=== PATIENT | female | born 1990 | race Caucasian/White ===

== ENCOUNTER 2017-05-06 10:33 | Outpatient (CLI) | payer MEDICAID ==
--- NOTE | 2017-05-06 11:20 | Non Stress Test Report ---
Non Stress Test Datetime Report Generated by CPN: 05/06/2017 11:20 DEMOGRAPHIC EGA NST: 34.4 INDICATION Indication for Study: Chronic Hypertension VITAL SIGNS Temperature - NST: 97.7 Pulse - NST: 79 RESP - NST: 16 NBPSYS NST: 119 NBPDIA NST: 74 MONITORING Monitor Explained: Monitor Explained; Test Explained; Patient Verbalized Understanding Time on Monitor: 05/06/2017 10:45 NST INTERVENTIONS NST Interventions: PO Hydration; Reposition Patient Physician Notified NST: Dr Domingo BABY A: [id number] BABY A Movement : Present FHR Baseline : 135 Accelerations : 15X15 Decelerations : None Variability : Moderate 6-25bpm NST Review: Meets Criteria for Reactive NST NST Review and Verified By : Gustavo Chaudhari RNC NST Results: Reactive NST REPORT Report Trigger: Send Report
== END 2017-05-06 11:31 | disposition home or self-care (01) ==
LOC: LC 10:33
PROVIDERS: ATTEND Student in an Organized Health Care Education/Training Program
PROC: 4A1HXCZ Monitoring of Products of Conception, Cardiac Rate, External Approach (ICD-10-PCS; principal; 2017-05-06)
DX: O10.913 Unspecified pre-existing hypertension complicating pregnancy, third trimester (principal); Z3A.34 34 weeks gestation of pregnancy
CPT/HCPCS: 59025

== ENCOUNTER 2017-05-13 10:43 | Outpatient (CLI) | payer MEDICAID ==
--- NOTE | 2017-05-13 13:44 | RADIOLOGY REPORT (SQ) ---
EXAM DESCRIPTION: U/S PROFILE W/O STRESS COMPLETED DATE/TIME: 05/13/2017 1:32 pm REASON FOR STUDY: nr nst COMPARISON: None. TECHNIQUE: Limited garcia-scale realtime and static images of the fetus to measure specified parameter s. LIMITATIONS: None. FINDINGS: HEART RATE: 152 beats per minute. TERRENCE: 11.1 cm. BREATHING MOVEMENT: 2 points. MOVEMENT: 2 points. POSTURE AND TONE: 2 points. QUALITATIVE TERRENCE: 2 points. OTHER: Fetus is in cephalic presentation. IMPRESSION: BIOPHYSICAL PROFILE: 02/04. Trimester of : Third - 28 weeks to delivery COMMENT: BREATHING MOVEMENTS: 2 POINTS: PRESENT 0 POINTS: ABSENT MOTION: 2 POINTS: PRESENT 0 POINTS: ABSENT TONE: 2 POINTS: PRESENT 0 POINTS: ABSENT AMNIOTIC FLUID VOLUME: 2 POINTS: LARGEST POCKET GREATER THAN 2 CM DEPTH. 0 POINTS: NO POCKET OF 2 CM. TECHNICAL DOCUMENTATION: JOB ID: [id number] [employer]- All Rights Reserved
== END 2017-05-13 14:00 | disposition home or self-care (01) ==
LOC: LC 10:43
PROVIDERS: ATTEND Obstetrics & Gynecology Gynecology
PROC: 4A1HXCZ Monitoring of Products of Conception, Cardiac Rate, External Approach (ICD-10-PCS; principal; 2017-05-13)
DX: Z36.89 Encounter for other specified antenatal screening (principal); Z3A.35 35 weeks gestation of pregnancy
CPT/HCPCS: 76819

== ENCOUNTER 2017-05-19 17:07 | Outpatient (CLI) | payer MEDICAID ==
--- NOTE | 2017-05-19 19:33 | Non Stress Test Report ---
Non Stress Test Datetime Report Generated by CPN: 05/19/2017 19:33 DEMOGRAPHIC Test Number: 5 EGA NST: 36.3 INDICATION Indication for Study: Ordered by Provider MONITORING Monitor Explained: Monitor Explained; Test Explained; Patient Verbalized Understanding Time on Monitor: 05/19/2017 17:18 Time off Monitor: 05/19/2017 19:22 NST Duration: 124 NST INTERVENTIONS NST Interventions: PO Hydration Physician Notified NST: Dr Domingo BABY A: [id number] BABY A Movement : Present Contraction Frequency : none FHR Baseline : 130 Accelerations : 15X15 Decelerations : None Variability : Moderate 6-25bpm NST Review: Meets Criteria for Reactive NST NST Review and Verified By : EMILY Dorsey Results: Reactive NST REPORT Report Trigger: Send Report
== END 2017-05-19 19:25 | disposition home or self-care (01) ==
LOC: LC 17:07
PROVIDERS: ATTEND Student in an Organized Health Care Education/Training Program
PROC: 4A1HXCZ Monitoring of Products of Conception, Cardiac Rate, External Approach (ICD-10-PCS; principal; 2017-05-19)
DX: Z34.93 Encounter for supervision of normal pregnancy, unspecified, third trimester (principal)
CPT/HCPCS: 59025

== ENCOUNTER 2017-05-21 15:58 | Outpatient (CLI) | payer MEDICAID | END 2017-05-21 17:20 | disposition home or self-care (01) | LOC: LC 15:58 | PROVIDERS: ATTEND Obstetrics & Gynecology | PROC: 4A1HXCZ Monitoring of Products of Conception, Cardiac Rate, External Approach (ICD-10-PCS; principal; 2017-05-21) | DX: O13.3 Gestational [pregnancy-induced] hypertension without significant proteinuria, third trimester (principal); Z3A.36 36 weeks gestation of pregnancy | CPT/HCPCS: 59025 ==

== ENCOUNTER 2017-05-26 12:43 | Outpatient (CLI) | payer MEDICAID ==
--- NOTE | 2017-05-26 12:53 | Non Stress Test Report ---
Non Stress Test Datetime Report Generated by CPN: 05/26/2017 12:53 DEMOGRAPHIC EGA NST: 36.5 INDICATION Indication for Study: Gestational Hypertension; Ordered by Provider MONITORING Monitor Explained: Monitor Explained; Test Explained; Patient Verbalized Understanding Time on Monitor: 05/21/2017 16:09 Time off Monitor: 05/21/2017 17:14 NST Duration: 65 NST INTERVENTIONS NST Interventions: PO Hydration; Reposition Patient; Vibroacoustic Stim Physician Notified NST: DrMatilde Domenic BABY A: [id number] BABY A Movement : Present Contraction Frequency : None FHR Baseline : 135 Accelerations : 15X15 Decelerations : None Variability : Moderate 6-25bpm NST Review: Meets Criteria for Reactive NST NST Review and Verified By : Brijesh Saenz RN NST Results: Reactive NST REPORT Report Trigger: Send Report
[2017-05-26 13:47] LABS: ABSOLUTE BASOPHILS # (AUTO) 0.1 10^3/uL (0.0-0.2); ABSOLUTE MONOCYTES (AUTO) 0.5 10^3/uL (0.1-1.4); ABSOLUTE NEUT (AUTO) 6.2 10^3/uL (1.7-8.2); BASOPHILS % (AUTO) 0.6 % (0-2); EOSINOPHILS % (AUTO) 0.6 % (0-6); HEMATOCRIT 33.2 % (36.0-47.0); HEMOGLOBIN 11.2 g/dL (12.0-15.5); HGB HCT DIFFERENCE 0.4; LYMPHOCYTES % (AUTO) 23.1 % (13-45); MEAN CORPUSCULAR HEMOGLOBIN 29.3 pg (27.0-33.4); MEAN CORPUSCULAR HGB CONC 33.6 g/dL (32.0-36.0); MEAN CORPUSCULAR VOLUME 87 fl (80-97); MONOCYTES % (AUTO) 5.7 % (3-13); RED BLOOD COUNT 3.81 10^6/uL (3.72-5.28); RED CELL DISTRIBUTION WIDTH 13.6 % (11.5-14.0); WHITE BLOOD COUNT 8.8 10^3/uL (4.0-10.5)
[2017-05-26 14:18] LABS: ALANINE AMINOTRANSFERASE 36 U/L (9-52); ALBUMIN 3.3 g/dL (3.5-5.0); ALKALINE PHOSPHATASE 103 U/L (38-126); ANION GAP 9 (5-19); ASPARTATE AMINO TRANSFERASE 23 U/L (14-36); BILIRUBIN,DIRECT 0.2 mg/dL (0.0-0.4); BILIRUBIN,TOTAL 0.4 mg/dL (0.2-1.3); BLOOD UREA NITROGEN 12 mg/dL (7-20); CALCIUM 9.4 mg/dL (8.4-10.2); CARBON DIOXIDE 24 mmol/L (22-30); CHLORIDE 104 mmol/L (98-107); CREATININE RESULT 0.62 mg/dL (0.52-1.25); GLUCOSE 84 mg/dL (75-110); LDH 330 U/L (313-618); POTASSIUM 4.1 mmol/L (3.6-5.0); SODIUM 137.2 mmol/L (137-145); TOTAL PROTEIN 6.1 g/dL (6.3-8.2); URIC ACID 4.7 mg/dL (2.5-6.2)
[2017-05-26 14:21] LABS: APPEARANCE,URINE CLOUDY; BILIRUBIN,URINE NEGATIVE (NEGATIVE); GLUCOSE, URINE NEGATIVE (NEGATIVE); KETONES,URINE NEGATIVE (NEGATIVE); LEUKOCYTE ESTERASE,URINE TRACE (NEGATIVE); NITRITE,URINE NEGATIVE (NEGATIVE); PROTEIN,URINE NEGATIVE (NEGATIVE); URINE SPECIFIC GRAVITY 1.025
[2017-05-26 14:37] LABS: URINE BARBITURATES SCREEN NEGATIVE; URINE METHADONE SCREEN NEGATIVE; URINE OPIATES LOW NEGATIVE; URINE PHENCYCLIDINE SCREEN NEGATIVE
[2017-05-26 14:41] LABS: URINE CREATININE 131.6 mg/dL (16-327); URINE PROTEIN 8.7 mg/dL (<12)
[2017-05-28 11:26] LABS: URINE PROTEIN 6.6 mg/dL (<12)
== END 2017-05-26 14:49 | disposition home or self-care (01) ==
LOC: LC 12:43
PROVIDERS: ATTEND Student in an Organized Health Care Education/Training Program
PROC: 4A1HXCZ Monitoring of Products of Conception, Cardiac Rate, External Approach (ICD-10-PCS; principal; 2017-05-26)
DX: O13.3 Gestational [pregnancy-induced] hypertension without significant proteinuria, third trimester (principal); Z3A.37 37 weeks gestation of pregnancy
CPT/HCPCS: 36415; 59025; 80053; 80307; 81001; 82570; 83615; 84156; 84550; 85025

== ENCOUNTER 2017-06-02 16:04 | Outpatient (CLI) | payer MEDICAID ==
--- NOTE | 2017-06-02 19:13 | RADIOLOGY REPORT (SQ) ---
EXAM DESCRIPTION: U/S PROFILE W/O STRESS COMPLETED DATE/TIME: 06/02/2017 6:56 pm REASON FOR STUDY: non-reactive nst COMPARISON: 05/13/2017 TECHNIQUE: Limited garcia-scale realtime and static images of the fetus to measure specified parameter s. LIMITATIONS: None. FINDINGS: HEART RATE: 175 beats per minute. TERRENCE: 8.6 cm. BREATHING MOVEMENT: 2 points. MOVEMENT: 2 points. POSTURE AND TONE: 2 points. QUALITATIVE TERRENCE: 2 points. OTHER: No other significant finding. IMPRESSION: BIOPHYSICAL PROFILE: 02/04. Trimester of : Third - 28 weeks to delivery COMMENT: BREATHING MOVEMENTS: 2 POINTS: PRESENT 0 POINTS: ABSENT MOTION: 2 POINTS: PRESENT 0 POINTS: ABSENT TONE: 2 POINTS: PRESENT 0 POINTS: ABSENT AMNIOTIC FLUID VOLUME: 2 POINTS: LARGEST POCKET GREATER THAN 2 CM DEPTH. 0 POINTS: NO POCKET OF 2 CM. TECHNICAL DOCUMENTATION: JOB ID: [id number] [employer]- All Rights Reserved
--- NOTE | 2017-06-02 19:15 | Non Stress Test Report ---
Non Stress Test Datetime Report Generated by CPN: 06/02/2017 19:15 DEMOGRAPHIC EGA NST: 38.3 EGA NST: 37.3 INDICATION Indication for Study: Ordered by Provider Indication for Study: Chronic Hypertension; Ordered by Provider MONITORING Monitor Explained: Monitor Explained Monitor Explained: Monitor Explained; Test Explained; Patient Verbalized Understanding Time on Monitor: 06/02/2017 16:21 Time on Monitor: 05/26/2017 12:54 Time off Monitor: 06/02/2017 18:23 Time off Monitor: 05/26/2017 14:40 NST Duration: 122 NST Duration: 106 NST INTERVENTIONS NST Interventions: PO Hydration NST Interventions: PO Hydration; Reposition Patient Physician Notified NST: Mary Garzon CNM Physician Notified NST: Dr. Domingo BABY A: [id number] BABY A Movement : Present Movement : Present Contraction Frequency : none Contraction Frequency : None FHR Baseline : 145 FHR Baseline : 130 Accelerations : 10X10 Accelerations : 15X15 Decelerations : None Decelerations : None Variability : Moderate 6-25bpm Variability : Moderate 6-25bpm NST Review: Does Not Meet Criteria for Reactive NST NST Review: Meets Criteria for Reactive NST NST Review and Verified By : Brijesh Smith RN NST Review and Verified By : Delia Weir RN NST Results: Non-Reactive NST Results: Reactive NST COMMENTS NST Comments: pt. was send for BPP- BPP results were 8/8 NST REPORT Report Trigger: Send Report
== END 2017-06-02 19:04 | disposition home or self-care (01) ==
LOC: LC 16:04
PROVIDERS: ATTEND Obstetrics & Gynecology Gynecology
PROC: 4A1HXCZ Monitoring of Products of Conception, Cardiac Rate, External Approach (ICD-10-PCS; principal; 2017-06-02)
DX: O10.913 Unspecified pre-existing hypertension complicating pregnancy, third trimester (principal); Z3A.38 38 weeks gestation of pregnancy
CPT/HCPCS: 76819

== ENCOUNTER 2017-06-06 06:00 | Inpatient (IN) | payer MEDICAID ==
[2017-06-06] MEDS ORDERED: OXYTOCIN/NORMAL SALINE 20 UNIT/1,000 ML RTUINJ IV PRN (06:18)
[2017-06-06] MEDS ORDERED: DINOPROSTONE 10 MG VAGINAL INSERT.SR PV PRN (06:18)
[2017-06-06] MEDS ORDERED: RINGERS SOLUTION,LACTATED 300 ML IV ONE (06:18)
[2017-06-06 07:03] LABS: ABSOLUTE EOSINOPHILS # (AUTO) 0.1 10^3/uL (0.0-0.6); ABSOLUTE MONOCYTES (AUTO) 0.5 10^3/uL (0.1-1.4); BASOPHILS % (AUTO) 0.3 % (0-2); EOSINOPHILS % (AUTO) 1.6 % (0-6); HEMATOCRIT 31.9 % (36.0-47.0); HGB HCT DIFFERENCE 1.1; LYMPHOCYTES % (AUTO) 23.4 % (13-45); MEAN CORPUSCULAR HEMOGLOBIN 29.6 pg (27.0-33.4); MEAN CORPUSCULAR HGB CONC 34.4 g/dL (32.0-36.0); MEAN CORPUSCULAR VOLUME 86 fl (80-97); MONOCYTES % (AUTO) 5.7 % (3-13); RED BLOOD COUNT 3.71 10^6/uL (3.72-5.28); RED CELL DISTRIBUTION WIDTH 13.8 % (11.5-14.0); WHITE BLOOD COUNT 8.7 10^3/uL (4.0-10.5)
[2017-06-06 07:05] LABS: APPEARANCE,URINE SLIGHTLY-CLOUDY; BILIRUBIN,URINE NEGATIVE (NEGATIVE); GLUCOSE, URINE NEGATIVE (NEGATIVE); KETONES,URINE NEGATIVE (NEGATIVE); LEUKOCYTE ESTERASE,URINE NEGATIVE (NEGATIVE); NITRITE,URINE NEGATIVE (NEGATIVE); PROTEIN,URINE NEGATIVE (NEGATIVE); URINE SPECIFIC GRAVITY 1.021
[2017-06-06 07:26] LABS: URINE BARBITURATES SCREEN NEGATIVE; URINE METHADONE SCREEN NEGATIVE; URINE OPIATES LOW NEGATIVE; URINE PHENCYCLIDINE SCREEN NEGATIVE
[2017-06-06] MEDS ORDERED: DINOPROSTONE 10 MG VAGINAL INSERT.SR ONE (08:31)
[2017-06-06] MEDS: RINGERS SOLUTION,LACTATED 1,000 ML IV PRN ×2 (08:35→19:35)
[2017-06-06] MEDS ORDERED: LABETALOL HCL 200 MG TABLET ONE ×2 (09:41→21:57)
[2017-06-06] MEDS: LABETALOL HCL 200 MG TABLET PO SCH ×2 (09:42→22:02)
[2017-06-06] MEDS ORDERED: MISOPROSTOL 0.1 MG TABLET ONE (21:45)
[2017-06-06] MEDS: MISOPROSTOL 0.1 MG TABLET PV SCH (21:53)
[2017-06-07] MEDS ORDERED: MISOPROSTOL 0.1 MG TABLET ONE ×2 (02:04→04:05)
[2017-06-07] MEDS ORDERED: DEXTROSE 5%-LACTATED RINGERS 300 ML IV ONE (02:14)
[2017-06-07] MEDS: MISOPROSTOL 0.1 MG TABLET PV SCH (04:15)
[2017-06-07] MEDS ORDERED: OXYTOCIN/NORMAL SALINE 20 UNIT/1,000 ML RTUINJ IV PRN ×2 (06:00→14:41)
[2017-06-07] MEDS ORDERED: LIDOCAINE 1% INJ-PF (10 MG/ML) 30 ML SDV ONE (07:48)
[2017-06-07] MEDS ORDERED: MISOPROSTOL 0.2 MG TABLET ONE (07:48)
[2017-06-07] MEDS ORDERED: OXYTOCIN/NORMAL SALINE 20 UNIT/1,000 ML RTUINJ ONE (07:48)
[2017-06-07] MEDS ORDERED: NALBUPHINE HCL INJ 10 MG/1 ML AMPULE INJ PRN (08:56)
[2017-06-07] MEDS ORDERED: PROMETHAZINE HCL INJ 25 MG/1 ML VIAL IV ONE (09:55)
[2017-06-07] MEDS ORDERED: NALBUPHINE HCL INJ 10 MG/1 ML AMPULE ONE (10:02)
[2017-06-07] MEDS ORDERED: PROMETHAZINE HCL INJ 25 MG/1 ML VIAL ONE (10:02)
[2017-06-07] MEDS ORDERED: FENTANYL CITRATE INJ/PF 100 MCG/2 ML AMPUL ONE (10:48)
[2017-06-07] MEDS ORDERED: FENTANYL/BUPIVACAINE/NS/PF 200 MCG/100 ML RTUINJ EPI ONE (10:48)
[2017-06-07] MEDS ORDERED: EPHEDRINE SULFATE INJ 50 MG/1 ML AMPULE ONE (10:48)
[2017-06-07] MEDS ORDERED: PHENYLEPHRINE HCL INJ/PF 10 MG/1 ML SDV ONE (10:48)
[2017-06-07] MEDS ORDERED: BUPIVACAINE HCL 0.25 % INJ/PF (2.5 MG/1 ML) 30 ML VIAL ONE (10:49)
[2017-06-07] MEDS ORDERED: LABETALOL HCL 200 MG TABLET ONE (11:44)
[2017-06-07] MEDS: LABETALOL HCL 200 MG TABLET PO SCH ×2 (11:46→22:03)
--- NOTE | 2017-06-07 14:33 | L&D Progress Notes ---
PROGRESS NOTES Datetime Report Generated by CPN: 06/07/2017 14:33 PROGRESS NOTE Impression Other: IOL Plan: Continue Present Management; Induction Vital Signs : Reviewed; Within Normal Limits VAGINAL EXAM Dilatation: 1 Effacement: thick Station: high Contractions: q 2-3 min Contractions: irregular MEMBRANES Membranes: Intact FETUS A FHR - Baseline: 145 Monitoring: External US Variability: Moderate 6-25bpm Accelerations: 15X15 Decelerations: None FHR Category: Category I Estimated Weight (gm): 2655 Presentation: Vertex SIGNATURE SIGNATURE: [id number] SIGNATURE: [id number] SIGNATURE: [id number] SIGNATURE: [id number] SIGNATURE: [id number] SIGNATURE: [id number] SIGNATURE: [id number] Signature: with User ID: [email or web address]
[2017-06-07] MEDS ORDERED: BENZOCAINE/MENTHOL AEROSOL SPRAY 56 ML TOP PRN (14:41)
[2017-06-07] MEDS ORDERED: DIPH/PERTUSS(ACELL)/TETANUS VAC/PF 0.5 ML SYR (>=10YO) IM PRN (14:41)
[2017-06-07] MEDS ORDERED: ZOLPIDEM TARTRATE 5 MG TABLET PO PRN (14:41)
[2017-06-07] MEDS ORDERED: DIBUCAINE 1% OINTMENT 28 GM TP PRN (14:41)
[2017-06-07] MEDS ORDERED: HYDROCODONE/ACETAMINOPHEN 5-325 MG TABLET PO PRN (14:41)
[2017-06-07] MEDS ORDERED: MEASLES,MUMPS&RUBELLA VACC/PF 0.5 ML VIAL SUBCUT PRN (14:41)
[2017-06-07] MEDS ORDERED: IBUPROFEN 800 MG TABLET PO PRN (14:41)
[2017-06-07] MEDS ORDERED: ONDANSETRON HCL 8 MG TABLET PO PRN (14:44)
[2017-06-07] MEDS ORDERED: DIPHENHYDRAMINE HCL 25 MG CAPSULE PO PRN (14:44)
[2017-06-07] MEDS ORDERED: PROMETHAZINE HCL 25 MG TABLET PO PRN (14:45)
[2017-06-07] MEDS ORDERED: ACETAMINOPHEN 325 MG TABLET PO PRN (14:45)
[2017-06-07] MEDS ORDERED: FAMOTIDINE 20 MG TABLET PO PRN (14:46)
--- NOTE | 2017-06-07 15:30 | Warning Signs in Babies ---
VOD Warning Signs Datetime Report Generated by CPN: 06/07/2017 15:29 VOD#608 -Warning Signs in Babies: Viewed with Parent(s)/Family (06/07/2017 15:25:Dang Givens RN)
--- NOTE | 2017-06-07 16:58 | Admission Physical ---
Datetime Report Generated by CPN: 06/07/2017 16:58 CURRENT ADMISSION Hx Assessment: The History has been Reviewed and is Current Chief Complaint: Scheduled Induction of Labor Indication for Induction: Chronic Hypertension; Other Indication for Induction: Term, Intrauterine Indication for Induction- Other: elevated dopplers Admit Plan: Admit to Unit; Initiate Labor Induction Protocol ALLERGIES Medication Allergies: No Medication Allergies: No Known Allergies (05/21/2017) Medication Allergies: No Known Allergies (05/13/2017) Medication Allergies: No Known Allergies (05/06/2017) Medication Allergies: No Known Allergies (05/02/2017) Medication Allergies: No Known Allergies (04/30/2017) Latex: No Latex Allergies Food Allergies: no Environmental Allergies: no OBSTETRICAL HISTORY EDC: 06/13/2017 00:00 : 1 Para: 0 Term: 0 : 0 SAB: 0 IAB: 0 Ectopic: 0 Livin Cesareans: 0 VBACs: 0 Multiple Births: 0 Gestational Diabetes: No Rh Sensitization: No Incompetent Cervix: No URBANO: No Infertility: No ART Treatment: No Uterine Anomaly: No IUGR: No Hx Previous C/S: No Macrosomia: No Hx Loss/Stillborn: No PIH: Unknown Hx : No Placenta Previa/Abruption: No Depression/PP Depression: No PTL/PROM: No Post Hemorrhage: No Current Procedures: Ultrasound Obstetrical History Comments: G1: current, [employer] dopplers, iugr SEE RECORDS Alcohol: No Marijuana : No Cocaine: No Other Illicit Drugs: No Cigarettes: Never Smoker. [id number] MEDICAL HISTORY Diabetes: No Blood Transfusion: No Pulmonary Disease (Asthma, TB): No Breast Disease: No Hypertension: Yes [employer] Surgery: No Heart Disease: No Hosp/Surgery: No Autoimmune Disorder: No Anesthetic Complications: No Kidney Disease: No Abnormal Pap Smear: No Neuro/Epilepsy: No Psychiatric Disorders: No Other Medical Diseases: No Hepatitis/Liver Disease: No Significant Family History: No Varicosities/Phlebitis: No Trauma/Violence : No Thyroid Dysfunction: No Medical History Comments: CHTN INFECTIOUS HISTORY Gonorrhea: No Genital Herpes: No Chlamydia: Yes Tuberculosis: No Syphilis: No Hepatitis: No HIV/AIDS Exposure: No Rash or Viral Illness: No HPV: No Infectious History Comments: chlam in mark negative PHYSICAL EXAM General: Normal HEENT: Deferred Neurologic: Normal Thyroid: Deferred Heart: Normal Lungs: Normal Breast: Deferred Back: Normal Abdomen: Normal Genitourinary Exam: Normal Extremities: Normal DTRs: Normal Pelvic Type: Adequate Physical Exam Comments: pelvix/cervix per RN exam Vital Signs: Reviewed; Within Normal Limits VAGINAL EXAM Dilatation: 1 Effacement: thick Station: high Contraction Comments: q 2-3 min Contraction Comments: irregular MEMBRANES Membranes: Intact FETUS A EGA: 39.0 Monitoring: External US FHR- Baseline: 140 Decelerations: None FHR Category: Category I Estimated Weight (gm): 2655 Presentation: Vertex Admit Comment: 27yo @ 39w into L_D for IOL due to elevated dopplers (3.26) and CHTN. B pos, neg panorama screen, GBS neg, rubella non-immune, transfer in from [place] at 26w4d, growth @ 11 percentile on 05/28. Pt. reports +FM, denies LOF/bleeding or s/s of pre-e. Pt. was originally scheduled for cervidil last night but was brought in this AM. Plan is to continue with original orders of cervidil after discussing with Dr. Arana. also complicated by pos. chlamydia screening with negative MARK. Pt. takes labetalol 100mg bid will continue that as well. PLANS FOR LABOR AND DELIVERY Labor and Delivery: None Pain Management: Medications; Local; Epidural Feeding Preference: Both Benefit of Breast Feed Discussed: Yes Circumcision: N/A INFORMED CONSENT Assignment: Benito Arana MD Signature: with User ID: Sabrina : with User ID: [email or web address]
--- NOTE | 2017-06-07 17:27 | Delivery Summary ---
Del Sum A-C Datetime Report Generated by CPN: 06/07/2017 17:26 DELIVERY PERSONNEL DELIVERY PERSONNEL: [id number] Delivery Doctor:: Boo Mcbride MD Labor and Delivery Nurse:: Quin Sheth RNdata migration lead Nurse:: Dang Givens RN Analytics Senior Manager:: Gracie Saenz RN Distillery Worker General/SENIOR CLINICAL DATA COORDINATOR: Jt Cota CST Additional Personnel: : Kerrie Jacobson RN MATERNAL INFORMATION Delivery Anesthesia: Epidural Medications After Delivery: Pitocin Bolus-Please Comment Meds After Delivery Comment: pitocin 20 units in 1000ml NS bolusing per order Estimated Blood Loss (ml): 100 Maternal Complications: None Provider Comments: Pt C_P. Head delivered OA. Nuchal x 1 reduced. Anterior and posterior shoulder delivered followed by remainder of body. Baby placed on mom's abdomen. Cord clamped x 2 after 1 min and cut by FOB. Placenta delivered intact with 3VC. Lacerations repaired as above. LABOR SUMMARY EDC: 06/13/2017 00:00 No. Babies in Womb: 1 Attempted: No Labor Anesthesia: Epidural LABOR INFORMATION Reason for Induction: Intrauterine Growth Retardation; Chronic Hypertension Onset of Labor: 06/07/2017 10:44 Complete Dilatation: 06/07/2017 13:43 Cervical Ripening Agents: Cervidil; Cytotec @ Oxytocin: Induction Group B Beta Strep: negative Antibiotics # of Doses: 0 Antibiotics Time of Last Dose: na Name of Antibiotic Given: na Steroids Given: None Reason Steroids Not Administered: Not Applicable MEMBRANES Membranes Rupture Method: Spontaneous Rupture of Membranes: 06/07/2017 13:00 Length of Rupture (hr): 1.23 Amniotic Fluid Color: Clear Amniotic Fluid Amount: Small Amniotic Fluid Odor: Normal STAGES OF LABOR Stage 1 hr: 2 Stage 1 min: 59 Stage 2 hr: 0 Stage 2 min: 31 Stage 3 hr: 0 Stage 3 min: 4 Total Time in Labor hr: 3 Total Time in Labor min: 34 VAGINAL DELIVERY Episiotomy: None Laceration #1: Periurethral Laceration Extension #1: N/A Laceration Repair: Yes Laceration Repair Note: Bilateral periurethral lacs repaired in interrupted fashion with 3.0 vicryl Sponge Count Correct: N/A Sharps Count Correct: Yes CSECTION DELIVERY Primary Indication: N/A Other Primary Indication: n/a Secondary Indication: N/A Other Secondary Indication: n/a CSection Incidence: N/A Labor: N/A Elective: N/A CSection Incision: N/A CSection Incision- Other: n/a BABY A INFORMATION Infant Delivery Date/Time: 06/07/2017 14:14 Method of Delivery: Vaginal Born in Route : No : N/A Forceps: N/A Vacuum Extraction: N/A Shoulder Dystocia : No PRESENTATION/POSITION BABY A Presentation: Cephalic Cephalic Presentation: Vertex Vertex Position: Right Occipital Anterior Breech Presentation: N/A PLACENTA INFORMATION BABY A Placenta Delivery Time : 06/07/2017 14:18 Placenta Method of Delivery: Spontaneous Placenta Status: Delivered SCORES BABY A Heart Rate 1 min: >100 bpm Resp Effort 1 min: Good Cry Reflex Irritability 1 min: Cough or Sneeze or Pulls Away Muscle Tone 1 min: Active Motion Color 1 min: Body [place], Extremities Blue Resuscitation Effort 1 min: Tactile Stimulation SCORE 1 MIN: 9 Heart Rate 5 min: >100 bpm Resp Effort 5 min: Good Cry Reflex Irritability 5 min: Cough or Sneeze or Pulls Away Muscle Tone 5 min: Active Motion Color 5 min: Body [place], Extremities Blue Resuscitation Effort 5 min: Tactile Stimulation SCORE 5 MIN: 9 INFORMATION BABY A Gestational Age at Delivery: 39.1 Gestational Status: Full Term- 39- 40.6 Weeks Outcome : Liveborn Infant Condition : Stable Sex: Female IDENTIFICATION BABY A Verification Date/Time: 06/07/2017 14:36 ID Band Number: [id number] Mother's Name Verified: Yes RN Verifying : NDoyle RN Additional Verifying Personnel: ZEALER RN WEIGHT/LENGTH BABY A Birthweight (gm): 2560 Infant Weight (lb): 5 Weight (oz): 10 Length (in): 18.75 Length (cm): 47.63 CORD INFORMATION BABY A No. Cord Vessels: 3 Nuchal Cord : Around Neck x1, Loose True Knot: na Cord Blood Taken: Yes-For Storage (Mom's Blood type +) Infant Suction: Mouth; Nose ASSESSMENT BABY A Infant Complications: Multiple Variable Decels Physical Findings at Delivery: Molding of the Head; Extra Digit(s) Physical Findings- Other: webbed fingers Infant Respirations: Appears Normal Skin to Skin: Yes Skin to Skin Time (min): 20 Government Instructor/ALS Called : No Care By: Duke RN Transferred To: Remains with Mother BABY B INFORMATION : N/A SIGNATURES Signature: with User ID: [email or web address]
[2017-06-07] MEDS: FERROUS SULFATE 325 MG TABLET PO SCH (18:20)
[2017-06-07] MEDS: DOCUSATE SODIUM 100 MG CAPSULE PO SCH (18:20)
[2017-06-08 07:48] LABS: HEMOGLOBIN 11.3 g/dL (12.0-15.5); HGB HCT DIFFERENCE -0.1; MEAN CORPUSCULAR HEMOGLOBIN 29.1 pg (27.0-33.4); MEAN CORPUSCULAR HGB CONC 33.3 g/dL (32.0-36.0); MEAN CORPUSCULAR VOLUME 88 fl (80-97); RED BLOOD COUNT 3.89 10^6/uL (3.72-5.28); RED CELL DISTRIBUTION WIDTH 13.9 % (11.5-14.0); WHITE BLOOD COUNT 14.6 10^3/uL (4.0-10.5)
--- NOTE | 2017-06-08 09:00 | PDOC PROGRESS REPORT ---
Subjective Progress Note for:: 06/08/17 Reason For Visit: INDUCTION Physical Exam - Physical Exam Vital Signs: Temp Pulse Resp BP Pulse Ox 97.6 F 97 16 119/69 98 06/08/17 03:41 06/08/17 03:41 06/08/17 03:41 06/08/17 03:41 06/08/17 03:41 Intake & Output 06/07/17 06/08/17 06/09/17 06:59 06:59 06:59 Intake Total 1000 Balance 1000 - Obstetrical Exam Vagina: normal Fundal Height: u/u - u/2 Tender: No Adhexa: normal Result Laboratory Results: 06/08/17 07:16 06/08/17 07:16 WBC 14.6 H RBC 3.89 Hgb 11.3 L Hct 34.0 L MCV 88 MCH 29.1 MCHC 33.3 RDW 13.9 Plt Count 197 Assessment & Plan - Time Time Spent with patient: Less than 15 minutes Anticipated discharge: Home Within: within 24 hours
[2017-06-08] MEDS: LABETALOL HCL 200 MG TABLET PO SCH ×2 (10:18→22:18)
[2017-06-08] MEDS: PRENATAL VITAMIN W DHA CAPSULE PO SCH (10:18)
[2017-06-08] MEDS: FERROUS SULFATE 325 MG TABLET PO SCH ×2 (10:18→18:10)
[2017-06-08] MEDS: DOCUSATE SODIUM 100 MG CAPSULE PO SCH ×2 (10:18→18:10)
[2017-06-09] MEDS: FERROUS SULFATE 325 MG TABLET PO SCH (10:04)
[2017-06-09] MEDS: PRENATAL VITAMIN W DHA CAPSULE PO SCH (10:04)
[2017-06-09] MEDS: DOCUSATE SODIUM 100 MG CAPSULE PO SCH (10:04)
[2017-06-09] MEDS: LABETALOL HCL 200 MG TABLET PO SCH (10:04)
--- NOTE | 2017-06-09 11:50 | PDOC DISCHARGE SUMMARY ---
Final Diagnosis Discharge Date: 06/09/17 Discharge Data - Discharge Medication Home Medications: No122/Iron/Folic Acid [ Multi Tablet] 1 tab PO DAILY 04/30/17 Ibuprofen [Motrin 800 mg Tablet] 800 mg PO Q8HP PRN #90 tablet 06/09/17 Labetalol HCl [Normodyne 200 mg Tablet] 100 mg PO Q12 tablet 06/09/17 Reason(s) for Admission: Induction of Labor Procedures: NST Intrapartum Procedure(s): Spontaneous Vaginal Delivery - Diagnosis Test Laboratory: Temp Pulse Resp BP Pulse Ox 97.3 F 81 16 131/74 H 98 06/09/17 09:04 06/09/17 09:04 06/09/17 09:04 06/09/17 09:04 06/09/17 09:04 06/06/17 06/06/17 06/08/17 06:08 06:41 07:16 RBC 3.71 L 3.89 Hgb 11.0 L 11.3 L Hct 31.9 L 34.0 L Urine Opiates Screen NEGATIVE - Discharge information/Instructions Discharge Activity: Activity As Tolerated, Balance Activity w/Rest, Pelvic Rest Discharge Diet: Regular Disposition: HOME, SELF-CARE Follow up with: [facility] in: 1, Weeks - BP check, then 4 wks for post exam
[2017-06-09 12:55] VITALS: BP 124/77
== END 2017-06-09 13:16 | disposition home or self-care (01) | DRG 775 ==
LOC: LR 06:00 → 2S 06-07 16:56
PROVIDERS: ADMIT Obstetrics & Gynecology; ATTEND Obstetrics & Gynecology
PROC: 10E0XZZ Delivery of Products of Conception, External Approach (ICD-10-PCS; principal; 2017-06-07)
PROC: 0UQMXZZ Repair Vulva, External Approach (ICD-10-PCS; 2017-06-07)
DX: O16.4 Unspecified maternal hypertension, complicating childbirth (principal); O36.5930 Maternal care for other known or suspected poor fetal growth, third trimester, not applicable or unspecified; O69.81X0 Labor and delivery complicated by cord around neck, without compression, not applicable or unspecified; O71.82 Other specified trauma to perineum and vulva; O76 Abnormality in fetal heart rate and rhythm complicating labor and delivery; Z3A.39 39 weeks gestation of pregnancy; Z37.0 Single live birth
CPT/HCPCS: 36415; 80307; 81005; 85025; 85027; 86592; 86850; 86900; 86901; 94760; J2300; J2370; J2550; J2590; J3010; J3490